=== PATIENT | female | born 1960 | race African-American/Black ===

== ENCOUNTER 2017-10-17 03:47 | Emergency (ER) | payer SELFPAY ==
[2017-10-17 05:45] LABS: % BASOPHILS 0.4 % (0.0-2.0); % LYMPHOCYTES 26.2 % (20.0-50.0); % MONOCYTES 6.4 % (2.0-10.0); EOSINOPHILE ABSOLUTE 0.3 Th/cmm (0.1-0.4); HEMATOCRIT 33.3 % (41.0-60); HEMOGLOBIN 10.7 gm/dL (12-16); LYMPHOCYTE ABSOLUTE 1.1 Th/cmm (1.5-3.0); MEAN CELL VOLUME 80.1 fl (81-100); MEAN CORPUSCULAR HEMOGLOBIN 25.8 pg (27.0-31.0); MEAN CORPUSCULAR HGB CONC 32.2 pg (28.0-36.0); MEAN PLATELET VOLUME 7.6 fl; MONOCYTE ABSOLUTE 0.3 Th/cmm (0.3-1.0); NEUTROPHILE ABSOLUTE 2.6 Th/cmm (1.8-8.0); PLATELET COUNT 318 Th/cmm (150-400); RED BLOOD COUNT 4.16 Mil/cmm (3.80-5.10); RED CELL DISTRIBUTION WIDTH 14.6 % (11.5-20.0); WHITE BLOOD COUNT 4.3 Th/cmm (4.8-10.8)
[2017-10-17 06:14] LABS: ANION GAP 8.6 (7.0-16.0); BUN - UREA NITROGEN 13 mg/dL (7-25); CALCIUM SERUM 9.6 mg/dL (8.6-10.3); CARBON DIOXIDE 27.8 mEq/L (21.0-31.0); CHLORIDE 105 mEq/L (98-107); CREATININE - SERUM 0.5 mg/dL (0.6-1.2); GFR AFRICAN-AMERICAN > 60.0 ml/min (>90); GFR NON AFRICAN-AMERICAN > 60.0 ml/min; GLUCOSE 103 mg/dL (70-105); LIPASE 13 U/L (11-82); POTASSIUM SERUM 3.4 mEq/L (3.5-5.1); SODIUM SERUM 138 mEq/L (136-145)
--- NOTE | 2017-10-17 06:37 | ED Physician Chart ---
ED Chief Complaint/HPI - Patient Information Date Seen:: 10/17/17 Time Seen:: 04:00 Chief Complaint:: ABDOMINAL PAIN History of Present Illness:: THIS IS A 56 YO FEMALE PATIENT BIB EMS WITH A COMPLAINT OF ABDOMINAL PAIN. SHE DENIES, NAUSEA, VOMITING AND DIARRHEA. SHE DENIES CHEST PAIN AND DENIES HAVING DIABETES. THIS PATIENT IS ALSO CONCERNED ABOUT HER ECZEMA RASH OF HER ARMS. Allergies:: Allergies Allergy/AdvReac Type Severity Reaction Status Date / Time Penicillins [PCN] Allergy Verified 10/17/17 04:43 Vitals:: Vital Signs - 8 hr 10/17/17 04:00 Temp 97.8 F HR 64 RR 18 BP 100/58 O2 Sat % 96 Historian:: Patient Review:: Nurse's Note Reviewed ED Review of Systems - Review of Systems General/Constitutional: No fever, No chills, No weight loss, No weakness, No diaphoresis, No edema, No loss of appetite, Other (NOT COOPERATE ON R OF S.) Skin: No skin lesions, No rash, No bruising Head: No headache, No light-headedness Eyes: No loss of vision, No pain, No diplopia ENT: No earache, No nasal drainage, No sore throat, No tinnitus Neck: No neck pain, No swelling, No thyromegaly, No stiffness, No mass noted Cardio Vascular: No chest pain, No palpitations, No PND, No orthopnea, No edema Pulmonary: No SOB, No cough, No sputum, No wheezing GI: No nausea, No vomiting, No diarrhea, No pain, No melena, No hematochezia, No constipation, No hematemesis G/U: No dysuria, No frequency, No hematuria Musculoskeletal: No bone or joint pain, No back pain, No muscle pain Endocrine: No polyuria, No polydipsia Psychiatric: No prior psych history, No depression, No anxiety, No suicidal ideation Hematopoietic: No bruising, No lymphadenopathy Allergic/Immuno: No urticaria, No angioedema Neurological: No syncope, No focal symptoms, No weakness, No paresthesia, No headache, No seizure, No dizziness, No confusion, No vertigo ED Past Medical History - Past Medical History Obtainable: Yes Past Medical History: Asthma/COPD, Other (BIPOLAR AND ECZEMA) Family History: None Social History: Smoker, Alcohol, Illicit Drug Use, Homeless Surgical History: None Family Medical History - Family Member Mother History Unknown: Yes ED Physical Exam - Physical Examination General/Constitutional: Awake, Well-developed, well-nourished, Alert, No distress, GCS 15, Non-toxic appearing, Ambulatory Other Gen/Cons comments:: POOR HYGIENE AND UNCOOPERATIVE Head: Atraumatic Eyes: Lids, conjuctiva normal, PERRL, EOMI Skin: No skin lesions, No ecchymosis, Well hydrated, No lymphadenopathy Other Skin comments:: ECZEMA OVER THE UPPER EXTREMITIES ENMT: External ears, nose nl, Nasal exam nl, Lips, teeth, gums nl Neck: Nontender, Full ROM w/o pain, No JVD, No nuchal rigidity, No bruit, No mass, No stridor Respiratory: Nl effort/Exclusion, Clear to Auscultation, No Wheeze/Rhonchi/Rales Cardio Vascular: RRR, No murmur, gallop, rubs, NL S1 S2 GI: No tenderness/rebounding/guarding, No organomegaly, No hernia, Normal BS's, Nondistended, No mass/bruits, No McBurney tenderness : No CVA tenderness Extremities: No tenderness or effusion, Full ROM, normal strength in all extremities, No edema, Normal digits & nails Neuro/Psych: Alert/oriented, DTR's symmetric, Normal sensory exam, Normal motor strength, Judgement/insight normal, Mood normal (PARONOID), Normal gait, No focal deficits Misc: Normal back, No paraspinal tenderness ED Labs/Radiology/EKG Results - Lab Results Results: Laboratory Tests 10/17/17 10/17/17 05:31 05:31 WBC 4.3 L RBC 4.16 Hgb 10.7 L Hct 33.3 L MCV 80.1 L MCH 25.8 L MCHC Differential 32.2 RDW 14.6 Plt Count 318 MPV 7.6 Neutrophils % 59.0 Lymphocytes % 26.2 Monocytes % 6.4 Eosinophils % 8.0 H Basophils % 0.4 Sodium 138 Potassium 3.4 L Chloride 105 Carbon Dioxide 27.8 Anion Gap 8.6 BUN 13 Creatinine 0.5 L Est GFR ( Amer) > 60.0 Est GFR (Non-Af Amer) > 60.0 BUN/Creatinine Ratio 26.0 Glucose 103 Calcium 9.6 Lipase 13 ED Assessment - Assessment General Assessment: ALLERGIC RASH HOMELESS PSYCHOSIS THE PATIENT REFUSE SOLUMEDROL AND BENADRYL SHE ONLY WANTED CREAM TO APPLY. SHE REFUSED ALL OTHER TEST AND WOULD NOT GIVE URINE FOR TESTING. ED Septic Shock - . Is Septic Shock (SBP<90, OR Lactate>4 mmol\L) present?: No - <6hrs of presentation: Vital Signs: Vital Signs - 8 hr //18 04:00 Temp 97.8 F HR 64 RR 18 BP 100/58 O2 Sat % 96 ED Reassessment (Disposition) - Reassessment Reassessment Condition:: Improved - Diagnosis Diagnosis:: ALLERGIC RASH PSYCHOSIS HOMELESS - Aftercare/Follow up Instructions Aftercare/Follow-Up Instructions:: Counseled pt regarding lab results/diagnosis & need follow up, Refer to Discharge Instructions, Counseled pt & family regarding lab results/diagnosis & need follow up - Patient Disposition Discharge/Transfer:: Home Condition at Disposition:: Improved ED Discharge Plan - Patient Disposition Admit/Discharge/Transfer: PT DISCHARGED HOME Condition at Disposition: Improved Additional Instructions: FOLLOW UP WITH YOUR PMD IN THE AM.
[2017-10-17] MEDS ORDERED: Hydrocortisone 1% Cream 1 gm Packet TP ONE (06:47)
[2017-10-17] MEDS: Hydrocortisone 1% Cream 1 gm Packet TP ONE (07:00)
== END 2017-10-17 07:00 | disposition home or self-care (01) ==
LOC: ER 03:47
DX: T78.40XA Allergy, unspecified, initial encounter (principal); F17.200 Nicotine dependence, unspecified, uncomplicated; R10.9 Unspecified abdominal pain; F29 Unspecified psychosis not due to a substance or known physiological condition; Z59.0 Homelessness; X58.XXXA Exposure to other specified factors, initial encounter
CPT/HCPCS: 36415-UA; 80048-TC; 83690-TC; 85025-TC; Z7502